=== PATIENT | male | born 1995 | race Two or more races ===

== ENCOUNTER 2021-05-14 17:08 | Emergency (ER) | payer OTHER ==
[~2021-05-14] VITALS: Ht 180.3 cm; Wt 96.6 kg
[2021-05-14] MEDS ORDERED: ZITHROMAX500 MG PO (20:12)
== END 2021-05-14 20:54 | disposition home or self-care (01) ==
LOC: ER 17:08
DX: J03.90 Acute tonsillitis, unspecified (principal); J02.9 Acute pharyngitis, unspecified; J06.9 Acute upper respiratory infection, unspecified; Z20.822 Contact with and (suspected) exposure to COVID-19